=== PATIENT | female | born 1965 | race Caucasian/White ===

== ENCOUNTER 2021-11-24 06:18 | Inpatient (IN) ==
[2021-11-24] MEDS ORDERED: CeFAZolin Syr 2,000MG/20 ML 2,000 MG/20 ML SYRINGE IVPB ONE (06:38)
[2021-11-24] MEDS ORDERED: Ringers Solution, Lactated 1,000 ML IVC SCH (06:45)
[2021-11-24] MEDS ORDERED: Famotidine 20 MG/2 ML VIAL IVP ONE (07:03)
[2021-11-24] MEDS ORDERED: Acetaminophen IV 1,000 MG/100 ML BAG IVPB ONE (07:04)
[2021-11-24] MEDS ORDERED: Gabapentin 300 MG CAPSULE PO ONE (07:04)
[2021-11-24] MEDS ORDERED: *HR* Propofol 200 MG/20 ML VIAL IVP ONE (07:26)
[2021-11-24] MEDS ORDERED: *HR* Midazolam HCl 2 MG/2 ML VIAL ONE (07:26)
[2021-11-24] MEDS ORDERED: *HR* FentaNYL (PF) 100 MCG/2 ML VIAL ONE (07:26)
[2021-11-24] MEDS ORDERED: *HR* Rocuronium Bromide 50 MG/5 ML VIAL ONE ×2 (07:29→08:29)
[2021-11-24] MEDS ORDERED: Lidocaine -MPF 2% 5 ML VIAL ONE (07:29)
[2021-11-24] MEDS ORDERED: Lidocaine -MPF 4% 5 ML AMPUL ONE (07:29)
[2021-11-24] MEDS ORDERED: Ondansetron 4 MG/2 ML VIAL ONE (07:55)
[2021-11-24] MEDS ORDERED: Ketamine HCL *QUVA* 50mg (1mL) SYRINGE ONE (08:00)
[2021-11-24] MEDS ORDERED: *HR* Labetalol 20 MG/4 ML SYRINGE IVP ONE (08:59)
[2021-11-24] MEDS ORDERED: Sugammadex Sodium 200 MG/2 ML VIAL IV ONE (09:04)
[2021-11-24] MEDS ORDERED: Ondansetron 4 MG/2 ML VIAL IVP PRN ×2 (09:19→10:42)
[2021-11-24] MEDS ORDERED: Naloxone 0.4 MG/ML INJ IVP PRN (10:42)
[2021-11-24] MEDS: *HR* HYDROcodone/Acet 5/325 mg TABLET PO PRN ×2 (10:58→15:34)
[2021-11-24] MEDS: 0.9 % Sodium Chloride 1,000 ML IVC SCH (11:03)
[2021-11-24] MEDS: Ipratropium/Albuterol Neb 3 ML IH SCH ×3 (11:18→20:53)
[2021-11-24] MEDS: Gabapentin 300 MG CAPSULE PO SCH ×2 (15:34→20:37)
[2021-11-24] MEDS: *HR* Heparin 5,000 UNIT/ML VIAL SQ SCH ×2 (15:34→20:39)
[2021-11-24] MEDS ORDERED: *HR* OxyCODONE/APAP 7.5/325 TABLET PO PRN (20:00)
[2021-11-24] MEDS: Famotidine 20 MG TABLET PO SCH (20:37)
[2021-11-24] MEDS: QUEtiapine Fumarate 25 MG TABLET PO SCH (20:37)
[2021-11-24] MEDS: Sennosides/Docusate Sodium TABLET PO SCH (20:37)
[2021-11-24] MEDS: *HR* HYDROcodone/Acet 7.5/325 mg TABLET PO PRN (20:38)
[2021-11-25] MEDS: Ipratropium/Albuterol Neb 3 ML IH SCH ×6 (00:16→20:21)
[2021-11-25] MEDS: 0.9 % Sodium Chloride 1,000 ML IVC SCH (01:54)
[2021-11-25] MEDS: *HR* HYDROcodone/Acet 7.5/325 mg TABLET PO PRN ×4 (04:17→16:19)
[2021-11-25 04:49] LABS: Hematocrit 39.7 % (35.3-44.9); Hemoglobin 13.4 g/dL (11.5-15.4); Mean Corpuscular HGB Conc 33.8 g/dL (31.6-35.5); Mean Corpuscular Hemoglobin 31.8 pg (28.0-33.3); Mean Corpuscular Volume 94.1 fL (83.0-100.0); Mean Platelet Volume 8.9 fL (9.4-12.4); Platelet Count 332 K/mcL (140-400); Red Blood Count 4.22 M/mcL (3.82-4.97); Red Cell Distribution Width 13.2 % (11.5-14.5); White Blood Count 14.3 K/mcL (4.3-11.1)
[2021-11-25 05:08] LABS: BUN/Creatinine Ratio 14 (6-26); Blood Urea Nitrogen 9 mg/dL (6-20); Calcium 8.6 mg/dL (8.6-10.3); Carbon Dioxide 26 mEq/L (23-29); Chloride 103 mEq/L (98-107); Glucose 108 mg/dL (70-105); Magnesium 1.9 mg/dL (1.6-2.6); Osmolality,Calculated 283 (280-300); Potassium 4.2 mEq/L (3.5-5.1); Sodium 137 mEq/L (136-145); eGFR For African Americans > 60 (> 60); eGFR For Non-African Americans > 60 (> 60)
[2021-11-25] MEDS: *HR* Heparin 5,000 UNIT/ML VIAL SQ SCH ×3 (05:28→20:07)
[2021-11-25] MEDS: Sennosides/Docusate Sodium TABLET PO SCH ×2 (08:17→20:02)
[2021-11-25] MEDS: *HR* Buprenorphine HCl 8 MG TAB.SUBL SL SCH (08:18)
[2021-11-25] MEDS: Famotidine 20 MG TABLET PO SCH ×2 (08:18→20:01)
[2021-11-25] MEDS: Losartan/HCTZ 50-12.5 TABLET PO SCH (08:18)
[2021-11-25] MEDS: Gabapentin 300 MG CAPSULE PO SCH ×3 (08:18→20:01)
[2021-11-25] MEDS: BuPROPion XL (24 HR) 150 MG TABLET PO SCH (08:18)
[2021-11-25] MEDS ORDERED: NON-FORMULARY MEDICATION 1 EACH EACH (Buprenorphine Hcl/Naloxone Hcl [Suboxone 8 Mg-2 Mg S SL SCH (09:00)
[2021-11-25] MEDS: Ketorolac 30 MG/ML VIAL IVP SCH ×3 (09:45→17:11)
[2021-11-25] MEDS ORDERED: Amiodarone Premix 150 MG/100 ML BAG IVPB ONE (19:44)
[2021-11-25] MEDS: QUEtiapine Fumarate 25 MG TABLET PO SCH (20:01)
[2021-11-25] MEDS ORDERED: Amiodarone Premix 360 MG/200 ML BAG IVC ONE (20:30)
[2021-11-26] MEDS: Ketorolac 30 MG/ML VIAL IVP SCH ×5 (00:10→23:40)
[2021-11-26] MEDS: Ipratropium/Albuterol Neb 3 ML IH SCH ×7 (00:12→23:15)
[2021-11-26] MEDS: *HR* HYDROcodone/Acet 7.5/325 mg TABLET PO PRN ×5 (00:49→22:39)
[2021-11-26] MEDS: Amiodarone Premix 360 MG/200 ML BAG IVC SCH ×3 (02:27→22:40)
[2021-11-26] MEDS: *HR* Heparin 5,000 UNIT/ML VIAL SQ SCH ×3 (06:13→20:42)
[2021-11-26 07:13] LABS: BUN/Creatinine Ratio 25 (6-26); Blood Urea Nitrogen 10 mg/dL (6-20); Carbon Dioxide 24 mEq/L (23-29); Chloride 91 mEq/L (98-107); Glucose 145 mg/dL (70-105); Osmolality,Calculated 258 (280-300); Potassium 4.1 mEq/L (3.5-5.1); Sodium 123 mEq/L (136-145); eGFR For African Americans > 60 (> 60); eGFR For Non-African Americans > 60 (> 60)
[2021-11-26] MEDS: Gabapentin 300 MG CAPSULE PO SCH ×3 (08:07→20:43)
[2021-11-26] MEDS: Losartan/HCTZ 50-12.5 TABLET PO SCH (08:07)
[2021-11-26] MEDS: Sennosides/Docusate Sodium TABLET PO SCH ×2 (08:07→20:43)
[2021-11-26] MEDS: BuPROPion XL (24 HR) 150 MG TABLET PO SCH (08:07)
[2021-11-26] MEDS: *HR* Buprenorphine HCl 8 MG TAB.SUBL SL SCH (08:07)
[2021-11-26] MEDS: Famotidine 20 MG TABLET PO SCH ×2 (08:08→20:43)
[2021-11-26] MEDS: QUEtiapine Fumarate 25 MG TABLET PO SCH (20:43)
[2021-11-27 02:57] LABS: Hematocrit 36.2 % (35.3-44.9); Hemoglobin 12.7 g/dL (11.5-15.4); Mean Corpuscular HGB Conc 35.1 g/dL (31.6-35.5); Mean Corpuscular Hemoglobin 31.8 pg (28.0-33.3); Mean Corpuscular Volume 90.5 fL (83.0-100.0); Mean Platelet Volume 8.8 fL (9.4-12.4); Platelet Count 286 K/mcL (140-400); Red Cell Distribution Width 12.9 % (11.5-14.5); White Blood Count 20.5 K/mcL (4.3-11.1)
[2021-11-27 03:31] LABS: BUN/Creatinine Ratio 31 (6-26); Blood Urea Nitrogen 15 mg/dL (6-20); Calcium 8.9 mg/dL (8.6-10.3); Carbon Dioxide 27 mEq/L (23-29); Chloride 87 mEq/L (98-107); Glucose 103 mg/dL (70-105); Magnesium 1.7 mg/dL (1.6-2.6); Osmolality,Calculated 251 (280-300); Potassium 4.4 mEq/L (3.5-5.1); Sodium 120 mEq/L (136-145); eGFR For African Americans > 60 (> 60); eGFR For Non-African Americans > 60 (> 60)
[2021-11-27] MEDS: *HR* HYDROcodone/Acet 7.5/325 mg TABLET PO PRN ×4 (03:36→20:21)
[2021-11-27] MEDS: Ipratropium/Albuterol Neb 3 ML IH SCH ×5 (03:59→19:56)
[2021-11-27] MEDS: *HR* Heparin 5,000 UNIT/ML VIAL SQ SCH ×3 (05:17→20:20)
[2021-11-27] MEDS: Ketorolac 30 MG/ML VIAL IVP SCH ×3 (05:18→17:34)
[2021-11-27] MEDS: Famotidine 20 MG TABLET PO SCH ×2 (08:38→20:20)
[2021-11-27] MEDS: Gabapentin 300 MG CAPSULE PO SCH ×3 (08:39→20:21)
[2021-11-27] MEDS: *HR* Buprenorphine HCl 8 MG TAB.SUBL SL SCH (08:39)
[2021-11-27] MEDS: Sennosides/Docusate Sodium TABLET PO SCH ×2 (08:39→20:20)
[2021-11-27] MEDS: BuPROPion XL (24 HR) 150 MG TABLET PO SCH (08:39)
[2021-11-27] MEDS: Losartan/HCTZ 50-12.5 TABLET PO SCH (08:39)
[2021-11-27] MEDS: *HR* Amiodarone 200 MG TABLET PO SCH (12:37)
[2021-11-27] MEDS: polyethylene glycoL 3350 17 GM POWD.PACK PO SCH (12:37)
[2021-11-27] MEDS: QUEtiapine Fumarate 25 MG TABLET PO SCH (20:21)
[2021-11-28] MEDS: Ipratropium/Albuterol Neb 3 ML IH SCH ×7 (00:08→23:40)
[2021-11-28] MEDS ORDERED: Furosemide 20 MG/2 ML VIAL IVP ONE ×3 (00:38→07:15)
[2021-11-28] MEDS ORDERED: Albumin 25% 25gram/100mL 25 GM/100 ML IV.SOLN IVPB ONE (00:56)
[2021-11-28] MEDS: *HR* LORazepam 0.5 MG TABLET PO PRN ×2 (02:40→07:03)
[2021-11-28 04:02] LABS: Sodium, Urine 91.4 mEq/L
[2021-11-28 04:11] LABS: Hematocrit 34.5 % (35.3-44.9); Mean Corpuscular HGB Conc 34.8 g/dL (31.6-35.5); Mean Corpuscular Hemoglobin 31.1 pg (28.0-33.3); Mean Corpuscular Volume 89.4 fL (83.0-100.0); Mean Platelet Volume 9.7 fL (9.4-12.4); Platelet Count 269 K/mcL (140-400); Red Blood Count 3.86 M/mcL (3.82-4.97); Red Cell Distribution Width 12.6 % (11.5-14.5); White Blood Count 19.9 K/mcL (4.3-11.1)
[2021-11-28 04:32] LABS: Magnesium 1.6 mg/dL (1.6-2.6)
[2021-11-28 04:45] LABS: Thyroid Stimulating Hormone 2.123 mcIU/mL (0.340-5.600)
[2021-11-28] MEDS: *HR* Heparin 5,000 UNIT/ML VIAL SQ SCH ×2 (05:31→14:24)
[2021-11-28] MEDS: Ketorolac 30 MG/ML VIAL IVP SCH ×5 (05:32→18:52)
[2021-11-28 06:51] LABS: BUN/Creatinine Ratio 34 (6-26); Blood Urea Nitrogen 15 mg/dL (6-20); Calcium 8.9 mg/dL (8.6-10.3); Carbon Dioxide 29 mEq/L (23-29); Chloride 86 mEq/L (98-107); Glucose 89 mg/dL (70-105); Osmolality,Calculated 256 (280-300); Potassium 4.1 mEq/L (3.5-5.1); Sodium 123 mEq/L (136-145); eGFR For African Americans > 60 (> 60); eGFR For Non-African Americans > 60 (> 60)
[2021-11-28] MEDS: Gabapentin 300 MG CAPSULE PO SCH ×3 (08:07→21:06)
[2021-11-28] MEDS: Famotidine 20 MG TABLET PO SCH ×2 (08:07→21:08)
[2021-11-28] MEDS: *HR* Amiodarone 200 MG TABLET PO SCH (08:07)
[2021-11-28] MEDS: *HR* Buprenorphine HCl 8 MG TAB.SUBL SL SCH (08:08)
[2021-11-28] MEDS: BuPROPion XL (24 HR) 150 MG TABLET PO SCH (08:08)
[2021-11-28] MEDS: Sennosides/Docusate Sodium TABLET PO SCH ×2 (08:10→21:10)
[2021-11-28] MEDS: Losartan/HCTZ 50-12.5 TABLET PO SCH (08:10)
[2021-11-28] MEDS ORDERED: Magnesium Sulfate 1 GM/102 ML PIGGYBACK IVPB ONE (08:11)
[2021-11-28] MEDS: Metoprolol XL (24 HR) Succ 25 MG TAB.ER.24H PO SCH (08:11)
[2021-11-28] MEDS: polyethylene glycoL 3350 17 GM POWD.PACK PO SCH (08:11)
[2021-11-28] MEDS ORDERED: *HR* LORazepam 2 MG/ML VIAL IVP PRN (08:43)
[2021-11-28] MEDS: Azithromycin 500 MG in 0.9 % Sodium Chloride 250 ML IVPB SCH (09:47)
[2021-11-28 14:59] LABS: BUN/Creatinine Ratio 34 (6-26); Blood Urea Nitrogen 18 mg/dL (6-20); Calcium 9.1 mg/dL (8.6-10.3); Carbon Dioxide 31 mEq/L (23-29); Chloride 86 mEq/L (98-107); Glucose 112 mg/dL (70-105); Osmolality,Calculated 261 (280-300); Potassium 3.8 mEq/L (3.5-5.1); Sodium 124 mEq/L (136-145); eGFR For African Americans > 60 (> 60); eGFR For Non-African Americans > 60 (> 60)
[2021-11-28] MEDS: ALPRAZolam 0.25 MG TABLET PO PRN (18:51)
[2021-11-28] MEDS ORDERED: Furosemide 40 MG/4 ML VIAL IVP ONE (19:12)
[2021-11-28] MEDS: QUEtiapine Fumarate 25 MG TABLET PO SCH (21:10)
[2021-11-28] MEDS: *HR* HYDROcodone/Acet 7.5/325 mg TABLET PO PRN (21:12)
[2021-11-29] MEDS: Ketorolac 30 MG/ML VIAL IVP SCH ×2 (00:16→06:16)
[2021-11-29] MEDS: *HR* Heparin 5,000 UNIT/ML VIAL SQ SCH ×4 (03:07→21:10)
[2021-11-29] MEDS: ALPRAZolam 0.25 MG TABLET PO PRN ×2 (03:08→14:04)
[2021-11-29] MEDS: Ipratropium/Albuterol Neb 3 ML IH SCH ×6 (04:11→23:26)
[2021-11-29 09:22] LABS: BUN/Creatinine Ratio 40 (6-26); Blood Urea Nitrogen 21 mg/dL (6-20); Calcium 9.3 mg/dL (8.6-10.3); Carbon Dioxide 29 mEq/L (23-29); Chloride 86 mEq/L (98-107); Glucose 103 mg/dL (70-105); Osmolality,Calculated 265 (280-300); Potassium 3.2 mEq/L (3.5-5.1); Sodium 126 mEq/L (136-145); eGFR For African Americans > 60 (> 60); eGFR For Non-African Americans > 60 (> 60)
[2021-11-29 09:37] LABS: Hematocrit 39.5 % (35.3-44.9); Hemoglobin 13.4 g/dL (11.5-15.4); Mean Corpuscular HGB Conc 33.9 g/dL (31.6-35.5); Mean Corpuscular Hemoglobin 30.8 pg (28.0-33.3); Mean Corpuscular Volume 90.8 fL (83.0-100.0); Mean Platelet Volume 9.9 fL (9.4-12.4); Platelet Count 389 K/mcL (140-400); Red Blood Count 4.35 M/mcL (3.82-4.97); Red Cell Distribution Width 12.5 % (11.5-14.5); White Blood Count 21.1 K/mcL (4.3-11.1)
[2021-11-29] MEDS: Losartan/HCTZ 50-12.5 TABLET PO SCH (10:01)
[2021-11-29] MEDS: BuPROPion XL (24 HR) 150 MG TABLET PO SCH (10:01)
[2021-11-29] MEDS: Metoprolol XL (24 HR) Succ 25 MG TAB.ER.24H PO SCH (10:01)
[2021-11-29] MEDS: Famotidine 20 MG TABLET PO SCH ×2 (10:01→21:09)
[2021-11-29] MEDS: *HR* Amiodarone 200 MG TABLET PO SCH (10:01)
[2021-11-29] MEDS: *HR* HYDROcodone/Acet 7.5/325 mg TABLET PO PRN (10:01)
[2021-11-29] MEDS: Gabapentin 300 MG CAPSULE PO SCH ×3 (10:01→21:09)
[2021-11-29] MEDS: *HR* Buprenorphine HCl 8 MG TAB.SUBL SL SCH (10:01)
[2021-11-29] MEDS: Azithromycin 500 MG in 0.9 % Sodium Chloride 250 ML IVPB SCH (10:02)
[2021-11-29] MEDS: Sennosides/Docusate Sodium TABLET PO SCH ×2 (10:02→21:09)
[2021-11-29] MEDS: Furosemide 40 MG/4 ML VIAL IVP SCH ×2 (10:02→21:09)
[2021-11-29] MEDS: polyethylene glycoL 3350 17 GM POWD.PACK PO SCH (10:02)
[2021-11-29] MEDS ORDERED: Piperacillin/Tazobactam 3.375 GM in 0.9 % Sodium Chloride Mini Bag 100 ML IVPB SCH (16:00)
[2021-11-29 17:07] LABS: Basophils # 0.1 K/mcL (0.0-0.2); Basophils % 0.3 %; Eosinophils # 0.1 K/mcL (0.0-0.6); Eosinophils % 0.6 %; Immature Granulocytes % 0.9 % (0-4); Lymphocytes # 1.7 K/mcL (0.6-4.6); Lymphocytes % 8.1 %; Monocytes # 1.7 K/mcL (0.0-1.3); Monocytes % 7.8 %; Neutrophils # 17.7 K/mcL (1.6-8.9); Segmented Neutrophils % 82.3 %
[2021-11-29] MEDS: QUEtiapine Fumarate 25 MG TABLET PO SCH (21:09)
[2021-11-30] MEDS: Ipratropium/Albuterol Neb 3 ML IH SCH ×6 (03:46→23:28)
[2021-11-30] MEDS: *HR* HYDROcodone/Acet 7.5/325 mg TABLET PO PRN (05:05)
[2021-11-30] MEDS: *HR* Heparin 5,000 UNIT/ML VIAL SQ SCH ×3 (05:06→21:09)
[2021-11-30 07:39] LABS: Basophils # 0.1 K/mcL (0.0-0.2); Basophils % 0.3 %; Eosinophils # 0.4 K/mcL (0.0-0.6); Eosinophils % 1.9 %; Hematocrit 35.4 % (35.3-44.9); Hemoglobin 12.4 g/dL (11.5-15.4); Lymphocytes # 1.8 K/mcL (0.6-4.6); Lymphocytes % 9.5 %; Mean Corpuscular Hemoglobin 31.9 pg (28.0-33.3); Mean Platelet Volume 9.4 fL (9.4-12.4); Monocytes # 2.1 K/mcL (0.0-1.3); Monocytes % 11.2 %; Neutrophils # 14.6 K/mcL (1.6-8.9); Platelet Count 430 K/mcL (140-400); Red Blood Count 3.89 M/mcL (3.82-4.97); Red Cell Distribution Width 12.6 % (11.5-14.5); Segmented Neutrophils % 76.1 %; White Blood Count 19.1 K/mcL (4.3-11.1)
[2021-11-30 07:58] LABS: BUN/Creatinine Ratio 28 (6-26); Blood Urea Nitrogen 15 mg/dL (6-20); Calcium 9.2 mg/dL (8.6-10.3); Carbon Dioxide 33 mEq/L (23-29); Chloride 90 mEq/L (98-107); Glucose 94 mg/dL (70-105); Osmolality,Calculated 271 (280-300); Sodium 130 mEq/L (136-145); eGFR For African Americans > 60 (> 60); eGFR For Non-African Americans > 60 (> 60)
[2021-11-30] MEDS: Furosemide 40 MG/4 ML VIAL IVP SCH (08:27)
[2021-11-30] MEDS: BuPROPion XL (24 HR) 150 MG TABLET PO SCH (08:27)
[2021-11-30] MEDS: Gabapentin 300 MG CAPSULE PO SCH ×3 (08:27→21:08)
[2021-11-30] MEDS: polyethylene glycoL 3350 17 GM POWD.PACK PO SCH (08:27)
[2021-11-30] MEDS: Metoprolol XL (24 HR) Succ 25 MG TAB.ER.24H PO SCH (08:28)
[2021-11-30] MEDS: Sennosides/Docusate Sodium TABLET PO SCH ×2 (08:28→21:08)
[2021-11-30] MEDS: *HR* Amiodarone 200 MG TABLET PO SCH (08:28)
[2021-11-30] MEDS: Losartan/HCTZ 50-12.5 TABLET PO SCH (08:28)
[2021-11-30] MEDS: Famotidine 20 MG TABLET PO SCH ×2 (08:29→21:08)
[2021-11-30] MEDS: *HR* Buprenorphine HCl 8 MG TAB.SUBL SL SCH (08:29)
[2021-11-30] MEDS: *HR* HYDROcodone/Acet 5/325 mg TABLET PO PRN (15:03)
[2021-11-30] MEDS: ALPRAZolam 0.25 MG TABLET PO PRN (21:08)
[2021-11-30] MEDS: QUEtiapine Fumarate 25 MG TABLET PO SCH (21:09)
[2021-12-01 02:19] LABS: Basophils # 0.2 K/mcL (0.0-0.2); Eosinophils # 0.7 K/mcL (0.0-0.6); Eosinophils % 4.1 %; Hematocrit 37.3 % (35.3-44.9); Hemoglobin 12.8 g/dL (11.5-15.4); Lymphocytes # 2.5 K/mcL (0.6-4.6); Lymphocytes % 14.7 %; Mean Corpuscular HGB Conc 34.3 g/dL (31.6-35.5); Mean Corpuscular Hemoglobin 31.4 pg (28.0-33.3); Mean Corpuscular Volume 91.6 fL (83.0-100.0); Mean Platelet Volume 9.3 fL (9.4-12.4); Monocytes # 2.1 K/mcL (0.0-1.3); Monocytes % 12.3 %; Neutrophils # 11.3 K/mcL (1.6-8.9); Platelet Count 484 K/mcL (140-400); Red Blood Count 4.07 M/mcL (3.82-4.97); Red Cell Distribution Width 12.5 % (11.5-14.5); Segmented Neutrophils % 65.9 %; White Blood Count 17.1 K/mcL (4.3-11.1)
[2021-12-01 02:45] LABS: BUN/Creatinine Ratio 21 (6-26); Blood Urea Nitrogen 13 mg/dL (6-20); Calcium 9.4 mg/dL (8.6-10.3); Carbon Dioxide 32 mEq/L (23-29); Chloride 92 mEq/L (98-107); Glucose 121 mg/dL (70-105); Osmolality,Calculated 277 (280-300); Potassium 3.7 mEq/L (3.5-5.1); Sodium 133 mEq/L (136-145); eGFR For African Americans > 60 (> 60); eGFR For Non-African Americans > 60 (> 60)
[2021-12-01] MEDS: Ipratropium/Albuterol Neb 3 ML IH SCH ×6 (04:04→23:17)
[2021-12-01] MEDS: *HR* Heparin 5,000 UNIT/ML VIAL SQ SCH ×3 (05:20→21:11)
[2021-12-01] MEDS: *HR* Buprenorphine HCl 8 MG TAB.SUBL SL SCH (07:52)
[2021-12-01] MEDS: polyethylene glycoL 3350 17 GM POWD.PACK PO SCH (07:52)
[2021-12-01] MEDS: Gabapentin 300 MG CAPSULE PO SCH ×3 (07:52→21:11)
[2021-12-01] MEDS: *HR* Amiodarone 200 MG TABLET PO SCH (07:52)
[2021-12-01] MEDS: Furosemide 20 MG TABLET PO SCH (07:52)
[2021-12-01] MEDS: Metoprolol XL (24 HR) Succ 25 MG TAB.ER.24H PO SCH (07:55)
[2021-12-01] MEDS: BuPROPion XL (24 HR) 150 MG TABLET PO SCH (07:55)
[2021-12-01] MEDS: Sennosides/Docusate Sodium TABLET PO SCH ×2 (07:55→21:11)
[2021-12-01] MEDS: Famotidine 20 MG TABLET PO SCH ×2 (07:55→21:11)
[2021-12-01] MEDS: Losartan/HCTZ 50-12.5 TABLET PO SCH (07:55)
[2021-12-01] MEDS: *HR* HYDROcodone/Acet 5/325 mg TABLET PO PRN ×2 (13:45→19:47)
[2021-12-01] MEDS: QUEtiapine Fumarate 25 MG TABLET PO SCH (21:11)
[2021-12-02 02:28] LABS: Basophils # 0.2 K/mcL (0.0-0.2); Basophils % 1.4 %; Eosinophils # 0.7 K/mcL (0.0-0.6); Eosinophils % 4.7 %; Hematocrit 37.2 % (35.3-44.9); Hemoglobin 12.6 g/dL (11.5-15.4); Immature Granulocytes % 3.6 % (0-4); Lymphocytes # 2.9 K/mcL (0.6-4.6); Lymphocytes % 20.1 %; Mean Corpuscular HGB Conc 33.9 g/dL (31.6-35.5); Mean Corpuscular Hemoglobin 31.3 pg (28.0-33.3); Mean Corpuscular Volume 92.3 fL (83.0-100.0); Monocytes # 1.5 K/mcL (0.0-1.3); Monocytes % 10.5 %; Neutrophils # 8.6 K/mcL (1.6-8.9); Platelet Count 543 K/mcL (140-400); Red Blood Count 4.03 M/mcL (3.82-4.97); Red Cell Distribution Width 12.7 % (11.5-14.5); Segmented Neutrophils % 59.7 %; White Blood Count 14.4 K/mcL (4.3-11.1)
[2021-12-02 02:48] LABS: BUN/Creatinine Ratio 21 (6-26); Blood Urea Nitrogen 12 mg/dL (6-20); Calcium 9.6 mg/dL (8.6-10.3); Carbon Dioxide 31 mEq/L (23-29); Chloride 93 mEq/L (98-107); Glucose 128 mg/dL (70-105); Osmolality,Calculated 279 (280-300); Potassium 3.2 mEq/L (3.5-5.1); Sodium 134 mEq/L (136-145); eGFR For African Americans > 60 (> 60); eGFR For Non-African Americans > 60 (> 60)
[2021-12-02] MEDS: Ipratropium/Albuterol Neb 3 ML IH SCH ×6 (04:01→23:53)
[2021-12-02] MEDS: *HR* Heparin 5,000 UNIT/ML VIAL SQ SCH ×3 (06:45→20:02)
[2021-12-02] MEDS: Metoprolol XL (24 HR) Succ 25 MG TAB.ER.24H PO SCH (09:17)
[2021-12-02] MEDS: *HR* Buprenorphine HCl 8 MG TAB.SUBL SL SCH (09:17)
[2021-12-02] MEDS: Losartan/HCTZ 50-12.5 TABLET PO SCH (09:17)
[2021-12-02] MEDS: Gabapentin 300 MG CAPSULE PO SCH ×3 (09:17→20:01)
[2021-12-02] MEDS: Furosemide 20 MG TABLET PO SCH (09:18)
[2021-12-02] MEDS: BuPROPion XL (24 HR) 150 MG TABLET PO SCH (09:18)
[2021-12-02] MEDS: *HR* Amiodarone 200 MG TABLET PO SCH (09:18)
[2021-12-02] MEDS: Famotidine 20 MG TABLET PO SCH ×2 (09:18→20:03)
[2021-12-02] MEDS: polyethylene glycoL 3350 17 GM POWD.PACK PO SCH (09:19)
[2021-12-02] MEDS: Sennosides/Docusate Sodium TABLET PO SCH ×2 (09:19→20:03)
[2021-12-02] MEDS: *HR* HYDROcodone/Acet 5/325 mg TABLET PO PRN (11:11)
[2021-12-02] MEDS: QUEtiapine Fumarate 25 MG TABLET PO SCH (20:01)
[2021-12-02] MEDS: ALPRAZolam 0.25 MG TABLET PO PRN (20:02)
[2021-12-03 02:20] LABS: Hematocrit 37.1 % (35.3-44.9); Hemoglobin 12.6 g/dL (11.5-15.4); Mean Corpuscular Hemoglobin 31.4 pg (28.0-33.3); Mean Corpuscular Volume 92.5 fL (83.0-100.0); Platelet Count 596 K/mcL (140-400); Red Blood Count 4.01 M/mcL (3.82-4.97); Red Cell Distribution Width 12.9 % (11.5-14.5); White Blood Count 16.3 K/mcL (4.3-11.1)
[2021-12-03 02:37] LABS: BUN/Creatinine Ratio 20 (6-26); Blood Urea Nitrogen 11 mg/dL (6-20); Calcium 9.4 mg/dL (8.6-10.3); Carbon Dioxide 29 mEq/L (23-29); Chloride 97 mEq/L (98-107); Glucose 115 mg/dL (70-105); Magnesium 2.1 mg/dL (1.6-2.6); Osmolality,Calculated 276 (280-300); Potassium 4.7 mEq/L (3.5-5.1); Sodium 133 mEq/L (136-145); eGFR For African Americans > 60 (> 60); eGFR For Non-African Americans > 60 (> 60)
[2021-12-03] MEDS: Ipratropium/Albuterol Neb 3 ML IH SCH ×2 (04:12→08:02)
[2021-12-03] MEDS: *HR* Heparin 5,000 UNIT/ML VIAL SQ SCH (06:00)
[2021-12-03 06:59] VITALS: BP 137/76; PULSE 67; TEMP 98.4; O2SAT 100
[2021-12-03] MEDS: Losartan/HCTZ 50-12.5 TABLET PO SCH (08:25)
[2021-12-03] MEDS: Metoprolol XL (24 HR) Succ 25 MG TAB.ER.24H PO SCH (08:25)
[2021-12-03] MEDS: *HR* Buprenorphine HCl 8 MG TAB.SUBL SL SCH (08:25)
[2021-12-03] MEDS: BuPROPion XL (24 HR) 150 MG TABLET PO SCH (08:25)
[2021-12-03] MEDS: Furosemide 20 MG TABLET PO SCH (08:26)
[2021-12-03] MEDS: polyethylene glycoL 3350 17 GM POWD.PACK PO SCH (08:26)
[2021-12-03] MEDS: Famotidine 20 MG TABLET PO SCH (08:26)
[2021-12-03] MEDS: *HR* Amiodarone 200 MG TABLET PO SCH (08:26)
[2021-12-03] MEDS: Sennosides/Docusate Sodium TABLET PO SCH (08:26)
[2021-12-03] MEDS: Gabapentin 300 MG CAPSULE PO SCH (08:26)
== END 2021-12-03 10:40 | disposition home or self-care (01) | DRG 163 ==
LOC: SAMDAY 06:18 → 2NNU 10:33
PROVIDERS: ADMIT Thoracic Surgery (Cardiothoracic Vascular Surgery); ATTEND Thoracic Surgery (Cardiothoracic Vascular Surgery)